=== PATIENT | female | born 1965 | race Two or more races ===

== ENCOUNTER 2023-01-12 08:55 | Outpatient (CLI) | payer OTHER | END 2023-01-12 09:17 | disposition home or self-care (01) | LOC: SONOGRAMA 08:55 | PROVIDERS: ATTEND Obstetrics & Gynecology | DX: N84.0 Polyp of corpus uteri (principal) ==

== ENCOUNTER 2023-04-18 06:37 | Day surgery (SDC) | payer OTHER ==
[2023-04-13 10:25] LABS: HEMATOCRIT 38.6 % (36.0-45.00); HEMOGLOBIN 13.1 g/dL (12.0-15.00); MEAN CELL VOLUME 91.2 fL (80.00-100.00); PLATELET COUNT 290 K/uL (150-450); RED BLOOD COUNT 4.23 M/uL (4.00-6.00); RED CELL DISTRIBUTION WIDTH 13.4 % (11.5-14.5)
[2023-04-13 10:34] LABS: INR 0.95; PARTIAL THROMBOPLASTIN TIME 29.3 SECONDS (22.0-34.0)
[2023-04-13 10:41] LABS: URINE APPEARANCE Clear; URINE BACTERIA 351.4 uL (0.0-1933); URINE BILIRRUBIN Negative (NEGATIVE); URINE BLOOD Negative; URINE COLOR Yellow; URINE EPITHELIAL CELLS 16.8 uL (0.0-38.8); URINE GLUCOSE Negative (NEGATIVE); URINE LEUKOCYTE Negative; URINE NITRATE Negative; URINE PROTEIN Negative (NEGATIVE); URINE RBC 2.4 uL (0.0-20.8); URINE UROBILINOGEN 0.2 E.U./dl; URINE WBC 5.2 uL (0.0-23.2)
[2023-04-13 10:45] LABS: BILIRUBIN TOTAL 0.69 mg/dL (0.3-1.2); CALCIUM 9.6 mg/dL (8.5-10.1); CREATININE SERUM 0.67 mg/dL (0.55-1.02); GFR 90.72; GLOBULINA 3.1 G/DL (2.4-3.5); POTASSIUM 4.93 mEq/L (3.5-5.1); TOTAL PROTEIN 7.1 gm/dL (6.4-8.2)
[~2023-04-18] VITALS: Ht 165.1 cm; Wt 81.6 kg
[~2023-04-18 06:37] MED LIST: B12 ACTIVE1000 MCG PO; CLARITIN10 M1 PO
[2023-04-18] MEDS ORDERED: POVIDONE-IODINE 118 ML BOTT TOP ONE ×2 (15:33→16:45)
[2023-04-18] MEDS ORDERED: PROMETHAZINE HCL 50 MG/ML AMPUL IM PRN (17:30)
[2023-04-18] MEDS ORDERED: MORPHINE SULFATE 4 MG/ML VIAL IV PRN (17:30)
[2023-04-18] MEDS ORDERED: ONDANSETRON HCL 2 MG/ML VIAL ONE (18:07)
== END 2023-04-18 20:30 | disposition home or self-care (01) ==
LOC: CIR.AMB 06:37
PROVIDERS: ATTEND Obstetrics & Gynecology
DX: N85.01 Benign endometrial hyperplasia (principal); N95.0 Postmenopausal bleeding; Z20.822 Contact with and (suspected) exposure to COVID-19